=== PATIENT | male | born 1975 | race Caucasian/White ===

== ENCOUNTER 2019-10-12 14:47 | Inpatient (IN) | payer BC ==
[2019-10-12 16:27] VITALS: BMI 27.1
--- NOTE | 2019-10-12 17:50 | HP ---
COWS - Scale Resting Pulse: 1= NV 81-100 Sweatin=Flushed/Facial Moisture Restless Observation: 1= Difficult to Sit Still Pupil Size: 0= Normal to Room Light Bone or Joint Aches: 1= Mild Discomfort Runny Nose/ Eye Tearin= Runny Nose/Eyes GI Upset > 30mins: 3= Vomiting/Diarrhea Tremor Observation: 2= Slight Tremor Visible Yawning Observation: 0= None Anxiety or Irritability: 2=Irritable/Anxious Goose Flesh Skin: 3=Piloerection COWS Score: 17 CIWA Score Nausea/Vomitin Muscle Tremors: 3 Anxiety: 3 Agitation: 1-Slight > Activity Paroxysmal Sweats: 2 Orientation: 1-Uncertain about Date Tacttile Disturbances: 1-Very Mild Itch/Numbness Auditory Disturbances: 0-None Visual Disturbances: 0-None Headache: 2-Mild CIWA-Ar Total Score: 16 - Admission Criteria OASAS Guidelines: Admission for Medically Managed Detox: Requires at least one of the followin. CIWA greater than 12 2. Seizures within the past 24 hours 3. Delirium tremens within the past 24 hours 4. Hallucinations within the past 24 hours 5. Acute intervention needed for co occurring medical disorder 6. Acute intervention needed for co occurring psychiatric disorder 7. Severe withdrawal that cannot be handled at a lower level of care (continued vomiting, continued diarrhea, abnormal vital signs) requiring intravenous medication and/or fluids 8. Patient presents the following: CIWA greater than 12 Admission Criteria Met: Admission criteria met Admitting History and Physical - Admission History of Present Illness: Patient is a 44 year old male with history of alcohol use disorder, benzodiazepi ne use disorder, opiate use disorder presents for detox. PMH: asthma PSH: denies Social: lives in house, by himself. formerly worked in construction Pych: anxiety, depression Legal: currently on probation History Source: Patient Limitations to Obtaining History: No Limitations - Past Medical History Pulmonary: Yes: Asthma - Alcohol/Substance Use Hx Alcohol Use: Yes History of Substance Use: reports: Heroin, Marijuana, Tranquilizers - Social History Usual Living Arrangement: Yes: Alone ADL: Independent Occupation: formerly worked in construction History of Recent Travel: No Admission ROS BHS - HPI Exam Limitations: No Limitations - Ebola screening Have you traveled outside of the country in the last 21 days: No Have you been sick,other than usual withdrawal symptoms: No Do you have a fever: No - Review of Systems Constitutional: No Symptoms Reported EENT: denies: Blurred Vision, Hearing Loss Respiratory: denies: Cough, Shortness of Breath Cardiac: denies: Chest Pain, Palpitations GI: reports: Nausea, Vomiting (nausea, one episode NBNB vomiting secondary to withdrawal). denies: Abdominal cramping : denies: Burning, Dysuria Musculoskeletal: reports: Back Pain (chronic back pain) Neuro: reports: Headache. denies: Numbness, Weakness Psychiatric: reports: Anxious, Depressed, other (denies suicidal or homicidal ideation) Patient History - Patient Medical History Hx Anemia: No Hx Asthma: Yes Hx Chronic Obstructive Pulmonary Disease (COPD): No Hx Cancer: No Hx Cardiac Disorders: No Hx Congestive Heart Failure: No Hx Hypertension: No Hx Hypercholesterolemia: No Hx Pacemaker: No HX Cerebrovascular Accident: No Hx Seizures: Yes (secondary to benzo/ alcohol withdrawal (2018)) Hx Dementia: No Hx Diabetes: No Hx Gastrointestinal Disorders: No Hx Liver Disease: No Hx Genitourinary Disorders: No Hx Sexually Transmitted Disorders: No Hx Renal Disease (ESRD): No Hx Thyroid Disease: No Hx Human Immunodeficiency Virus (HIV): No Hx Hepatitis C: No Hx Depression: Yes Hx Suicide Attempt: No Hx Bipolar Disorder: No Hx Schizophrenia: No - Patient Surgical History Past Surgical History: No Hx Neurologic Surgery: No Hx Cataract Extraction: No Hx Cardiac Surgery: No Hx Lung Surgery: No Hx Breast Surgery: No Hx Breast Biopsy: No Hx Abdominal Surgery: No Hx Appendectomy: No Hx Cholecystectomy: No Hx Genitourinary Surgery: No Hx Section: No Hx Orthopedic Surgery: No Hx Hysterectomy: No - PPD History Previous Implant?: Yes Documented Results: Negative w/o proof Implanted On Prior R Admission?: No PPD to be Administered?: Yes - Reproductive History Patient is a Female of Child Bearing Age (11 -55 yrs old): No Patient : No - Smoking Cessation Smoking history: Never smoked Have you smoked in the past 12 months: No Hx Chewing Tobacco Use: No - Substance & Tx. History Hx Alcohol Use: Yes Substance Use Type: Alcohol, Heroin, Marijuana, Tranquilizers Hx Substance Use Treatment: Yes - Substances abused Alcohol Substance route: Oral Frequency: Daily Amount used: Vodka 1L daily, Beer 12 pack daily Age of first use: 19 Date of last use: 10/12/19 Heroin Substance route: Inhalation Frequency: Daily Amount used: 1 bundle daily (10 bags) Age of first use: 31 Date of last use: 10/12/19 Alprazolam (Xanax) Substance route: Oral Frequency: Daily Amount used: 2 bars daily (4mg) Age of first use: 31 Date of last use: 10/12/19 Marijuana/Hashish Substance route: Inhalation Frequency: Daily Amount used: 1 joint Age of first use: 19 Date of last use: 10/12/19 Admission Physical Exam [facility] - Vital Signs Vital Signs: Vital Signs - 24 hr 10/12/19 16:25 Temperature 98.2 F Pulse Rate 83 Respiratory 19 Rate Blood Pressure 151/82 - Physical General Appearance: Yes: Mild Distress, Anxious HEENTM: Yes: Normocephalic, LUIS A Respiratory: Yes: Lungs Clear, Normal Breath Sounds, No Respiratory Distress, No Accessory Muscle Use Neck: Yes: Supple Breast: Yes: Breast Exam Deferred Cardiology: Yes: Regular Rhythm, Regular Rate, S1, S2 Abdominal: Yes: Normal Bowel Sounds, Non Tender, Flat, Soft Musculoskeletal: Yes: Within Normal Limits, full range of Motion Extremities: Yes: Within Normal Limits, Normal Range of Motion Neurological: Yes: Within Normal Limits, Alert, Motor Strength 5/5, Normal Response Integumentary: Yes: Dry, Warm - Diagnostic (1) Anxiety Current Visit: No Status: Chronic (2) Depression Current Visit: No Status: Chronic Qualifiers: Depression Type: unspecified Qualified Code(s): F32.9 - Major depressive disorder, single episode, unspecified (3) Alcohol dependence with withdrawal, uncomplicated Current Visit: Yes Status: Acute (4) Opioid dependence with withdrawal Current Visit: Yes Status: Acute (5) Sedative, hypnotic or anxiolytic dependence with withdrawal, uncomplicated Current Visit: Yes Status: Acute (6) Marijuana abuse Current Visit: No Status: Chronic (7) Asthma Current Visit: No Status: Chronic Qualifiers: Asthma severity: unspecified severity Asthma persistence: unspecified Asthma complication type: unspecified Qualified Code(s): J45.909 - Unspecified asthma, uncomplicated Cleared for Admission [facility] - Detox or Rehab [facility] Level of Care: Medically Managed Detox Regimen/Protocol: Librium Claeared for Rehab Admission: Yes Screened but not Admitted - Documentation of Visit Screened but not Admitted: No Breathalyzer - Breathalyzer Breathalyzer: 0.150 Urine Drug Screen - Test Device Lot number: [id number] Expiration date: 05/31/21 - Control Is test valid?: Yes - Results Drug screen NEGATIVE: No Urine drug screen results: THC-Marijuana, FEN-Fentanyl, MOP-Opiates, BZO- Benzodiazepines, BUP-Suboxone Inpatient Rehab Admission - Rehab Decision to Admit Inpatient rehab admission?: No
[2019-10-12] MEDS ORDERED: MAGNESIUM HYDROX 2400MG/30ML ORAL SUSPENSION 30 ML CUP PO PRN (18:00)
[2019-10-12] MEDS ORDERED: BISMUTH SUBSALICYLATE 524 MG/30 ML UD PO PRN (18:00)
[2019-10-12] MEDS ORDERED: cloNIDine HCL 0.1 MG TABLET PO PRN (18:00)
[2019-10-12] MEDS ORDERED: chlordiazePOXIDE HCL 25 MG CAPSULE PO PRN (18:00)
[2019-10-12] MEDS ORDERED: IBUPROFEN 400 MG TABLET (FP) PO PRN (18:00)
[2019-10-12] MEDS ORDERED: ONDANSETRON *ODT* 4 MG TABLET SL PRN (18:00)
[2019-10-12] MEDS ORDERED: ACETAMINOPHEN 325 MG TABLET (FP) PO PRN ×2 (18:00)
[2019-10-12] MEDS ORDERED: MENTHOL/PHENOL 1 EACH UD MM PRN (18:00)
[2019-10-12] MEDS ORDERED: MAG HYDROX/AL HYDROX/SIMETH 30 ML UNIT-DOSE CUP PO PRN (18:00)
[2019-10-12] MEDS ORDERED: METHOCARBAMOL 500 MG TABLET PO PRN (18:00)
[2019-10-12] MEDS ORDERED: hydrOXYzine PAMOATE 25 MG CAPSULE (FP) PO SCH (18:00)
[2019-10-12] MEDS ORDERED: MAGNESIUM CITRATE 300 ML BOTTLE PO PRN (18:00)
[2019-10-12] MEDS ORDERED: METHADONE HCL 10 MG TABLET (FOR DETOX USE ONLY) PO ONE (18:00)
[2019-10-12] MEDS ORDERED: ALBUTEROL SO4 HFA INHALER IH PRN (18:03)
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
[2019-10-12] MEDS: hydrOXYzine PAMOATE 25 MG CAPSULE (FP) PO PRN (19:27)
[2019-10-12] MEDS: AMOX TR/POT CLAV 875MG/125MG TABLETS (FP) PO SCH (19:56)
[2019-10-12] MEDS: chlordiazePOXIDE HCL 25 MG CAPSULE PO SCH (22:11)
[2019-10-12] MEDS: THIAMINE HCL 100 MG TABLET (FP) PO SCH (22:11)
[2019-10-12] MEDS: BACITRACIN 0.9 GM PACKET TP SCH (22:12)
[2019-10-12] MEDS: MELATONIN 5 MG TABLETS PO SCH (22:13)
[2019-10-13] MEDS: chlordiazePOXIDE HCL 25 MG CAPSULE PO SCH ×4 (05:21→22:19)
[2019-10-13] MEDS: AMOX TR/POT CLAV 875MG/125MG TABLETS (FP) PO SCH ×2 (07:22→17:52)
[2019-10-13] MEDS ORDERED: METHADONE (DETOX) 20 MG, METHADONE (DETOX) 5 MG PO ONE (10:00)
[2019-10-13] MEDS ORDERED: BUPRENORPHINE/NALOXONE 8 MG/2 MG FILM PACKET SL ONE ×2 (10:00→10:30)
[2019-10-13] MEDS: PRENATAL VITAMINS W/ FOLIC ACID TABLET (FP) PO SCH (10:17)
[2019-10-13] MEDS: BACITRACIN 0.9 GM PACKET TP SCH ×2 (10:18→22:22)
[2019-10-13 10:37] LABS: HEMATOCRIT 50.7 % (35.4-49); HEMOGLOBIN 17.2 GM/dL (11.7-16.9); MCH 33.2 pg (25.7-33.7); MCHC 33.9 g/dl (32.0-35.9); MEAN CELL VOLUME 98.1 fl (80-96); MEAN PLT VOLUME 9.2 fl (7.5-11.1); PLATELET COUNT 308 K/MM3 (134-434); RBC 5.16 M/mm3 (4.00-5.60); RDW 14.6 % (11.9-15.9); WHITE BLOOD COUNT 8.1 K/mm3 (4.0-10.0)
[2019-10-13 10:52] LABS: ALBUMIN 4.2 g/dl (3.4-5.0); BILIRUBIN,TOTAL 2.5 mg/dL (0.2-1); BLOOD UREA NITROGEN 14.5 mg/dL (7-18); CALCIUM 9.6 mg/dL (8.5-10.1); POTASSIUM 4.8 mmol/L (3.5-5.1); TOT PROT 7.5 g/dl (6.4-8.2)
--- NOTE | 2019-10-13 11:22 | CONSULT ---
[facility] Psychiatric Consult - Data Date of interview: 10/13/19 Medical History: Significant for bronchial asthma and drug related seizure Psychiatric History: Patient was approached at bedside for solicitation of a psychiatric interview. He told principal technical writer:" why do I have to see a psychiatrist. I'm ok"
--- NOTE | 2019-10-13 12:20 | PN ---
S CIWA - CIWA Score Nausea/Vomitin-Mild Nausea/No Vomiting Muscle Tremors: 3 Anxiety: 3 Agitation: 2 Paroxysmal Sweats: 1-Minimal Palms Moist Orientation: 0-Oriented Tacttile Disturbances: 1-Very Mild Itch/Numbness Auditory Disturbances: 0-None Visual Disturbances: 0-None Headache: 2-Mild CIWA-Ar Total Score: 13 S Progress Note (SOAP) Subjective: alert,irritable,anxious,interrupted sleep,aching pain,on suboxone 8mg/2 mg sl tid form i stop,aching pain,left leg sperficial old laceration 4 inched,no drainage, localizes erythema Objective: 10/13/19 12:15 Vital Signs Temperature 97.8 F 10/13/19 08:26 Pulse Rate 75 10/13/19 08:26 Respiratory Rate 20 10/13/19 08:26 Blood Pressure 145/81 10/13/19 08:26 O2 Sat by Pulse Oximetry (%) 98 10/13/19 05:10 Laboratory Last Values WBC 8.1 K/mm3 (4.0-10.0) 10/13/19 08:00 RBC 5.16 M/mm3 (4.00-5.60) 10/13/19 08:00 Hgb 17.2 GM/dL (11.7-16.9) H 10/13/19 08:00 Hct 50.7 % (35.4-49) H 10/13/19 08:00 MCV 98.1 fl (80-96) H 10/13/19 08:00 MCH 33.2 pg (25.7-33.7) 10/13/19 08:00 MCHC 33.9 g/dl (32.0-35.9) 10/13/19 08:00 RDW 14.6 % (11.9-15.9) 10/13/19 08:00 Plt Count 308 K/MM3 (134-434) 10/13/19 08:00 MPV 9.2 fl (7.5-11.1) 10/13/19 08:00 Sodium 138 mmol/L (136-145) 10/13/19 08:00 Potassium 4.8 mmol/L (3.5-5.1) 10/13/19 08:00 Chloride 100 mmol/L (98-107) 10/13/19 08:00 Carbon Dioxide 31 mmol/L (21-32) 10/13/19 08:00 Anion Gap 7 MMOL/L (8-16) L 10/13/19 08:00 BUN 14.5 mg/dL (7-18) 10/13/19 08:00 Creatinine 1.0 mg/dL (0.55-1.3) 10/13/19 08:00 Est GFR (CKD-EPI)AfAm 106.36 10/13/19 08:00 Est GFR (CKD-EPI)NonAf 91.77 10/13/19 08:00 Random Glucose 104 mg/dL (74-106) 10/13/19 08:00 Calcium 9.6 mg/dL (8.5-10.1) 10/13/19 08:00 Total Bilirubin 2.5 mg/dL (0.2-1) H 10/13/19 08:00 AST 227 U/L (15-37) H 10/13/19 08:00 ALT 216 U/L (13-61) H 10/13/19 08:00 Alkaline Phosphatase 94 U/L (45-117) 10/13/19 08:00 Total Protein 7.5 g/dl (6.4-8.2) 10/13/19 08:00 Albumin 4.2 g/dl (3.4-5.0) 10/13/19 08:00 Syphilis Serology Non-reactive (NONREACTIVE) 10/13/19 08:00 Assessment: 10/13/19 12:16 withdrawal symptom Plan: continue detox librium regimen,continue suboxone 8mg/2mgs film tid ,continue augmentin 875 mgs po bid for 7 days, repeat cmp,inr in am
[2019-10-13] MEDS: BUPRENORPHINE/NALOXONE 8 MG/2 MG FILM PACKET SL SCH ×2 (13:27→22:19)
[2019-10-13] MEDS: hydrOXYzine PAMOATE 25 MG CAPSULE (FP) PO PRN (15:53)
--- NOTE | 2019-10-13 16:58 | EKG ---
Test Reason : Blood Pressure : / mmHG Vent. Rate : 055 BPM Atrial Rate : 055 BPM P-R Int : 124 ms QRS Dur : 086 ms QT Int : 416 ms P-R-T Axes : 037 076 045 degrees QTc Int : 397 ms SINUS BRADYCARDIA OTHERWISE NORMAL ECG NO PREVIOUS ECGS AVAILABLE Confirmed by SAMINA DUPONT MD ([id number]) on 10/13/2019 4:57:44 PM Referred By: Confirmed By:SAMINA DUPONT MD
[2019-10-13] MEDS: THIAMINE HCL 100 MG TABLET (FP) PO SCH (22:19)
[2019-10-13] MEDS: MELATONIN 5 MG TABLETS PO SCH (22:19)
[2019-10-14] MEDS: BUPRENORPHINE/NALOXONE 8 MG/2 MG FILM PACKET SL SCH ×2 (06:36→13:14)
[2019-10-14] MEDS: chlordiazePOXIDE HCL 25 MG CAPSULE PO SCH ×2 (06:36→10:22)
[2019-10-14] MEDS ORDERED: METHADONE HCL 10 MG TABLET (FOR DETOX USE ONLY) PO ONE (10:00)
[2019-10-14] MEDS: BACITRACIN 0.9 GM PACKET TP SCH (10:22)
[2019-10-14 10:26] LABS: INR 0.91 (0.83-1.09); PROTHROMBIN TIME (PATIENT) 10.7 SEC (9.7-13.0)
[2019-10-14 10:31] LABS: ALBUMIN 4.2 g/dl (3.4-5.0); BILIRUBIN,TOTAL 1.5 mg/dL (0.2-1); BLOOD UREA NITROGEN 11.1 mg/dL (7-18); CALCIUM 9.5 mg/dL (8.5-10.1); CREATININE 1.2 mg/dL (0.55-1.3); POTASSIUM 4.3 mmol/L (3.5-5.1); TOT PROT 7.8 g/dl (6.4-8.2)
--- NOTE | 2019-10-14 11:11 | PN ---
S CIWA - CIWA Score Nausea/Vomitin-Mild Nausea/No Vomiting Muscle Tremors: 2 Anxiety: 2 Agitation: 2 Paroxysmal Sweats: 2 Orientation: 0-Oriented Tacttile Disturbances: 0-None Auditory Disturbances: 0-None Visual Disturbances: 0-None Headache: 1-Very Mild CIWA-Ar Total Score: 10 S Progress Note (SOAP) Subjective: pt admitted for polysubstance use, alcohol detox, on opioid agonest treatment. O: Vital Signs - 24 hr 10/13/19 10/13/19 10/13/19 13:38 16:49 20:45 Temperature 98 F 98.6 F 97.8 F Pulse Rate 72 65 59 L Respiratory 18 17 18 Rate Blood Pressure 135/79 146/86 139/79 O2 Sat by Pulse 97 98 Oximetry (%) 10/14/19 10/14/19 06:30 09:08 Temperature 97.5 F L 97.5 F L Pulse Rate 56 L 65 Respiratory 18 18 Rate Blood Pressure 143/87 132/78 O2 Sat by Pulse 96 Oximetry (%) Laboratory Tests 10/12/19 10/13/19 10/13/19 18:45 08:00 08:00 WBC 8.1 RBC 5.16 Hgb 17.2 H Hct 50.7 H MCV 98.1 H MCH 33.2 MCHC 33.9 RDW 14.6 Plt Count 308 MPV 9.2 PT with INR INR Sodium Potassium Chloride Carbon Dioxide Anion Gap BUN Creatinine Est GFR (CKD-EPI)AfAm Est GFR (CKD-EPI)NonAf Random Glucose Calcium Total Bilirubin AST ALT Alkaline Phosphatase Total Protein Albumin Syphilis Serology Non-reactive COVID-19 ([facility]) Not detected 10/13/19 10/14/19 10/14/19 08:00 07:50 07:50 WBC RBC Hgb Hct MCV MCH MCHC RDW Plt Count MPV PT with INR 10.70 INR 0.91 Sodium 138 139 Potassium 4.8 4.3 Chloride 100 102 Carbon Dioxide 31 31 Anion Gap 7 L 6 L BUN 14.5 11.1 Creatinine 1.0 1.2 Est GFR (CKD-EPI)AfAm 106.36 85.32 Est GFR (CKD-EPI)NonAf 91.77 73.62 Random Glucose 104 120 H Calcium 9.6 9.5 Total Bilirubin 2.5 H 1.5 H AST 227 H 159 H ALT 216 H 201 H Alkaline Phosphatase 94 94 Total Protein 7.5 7.8 Albumin 4.2 4.2 Syphilis Serology COVID-19 ([facility]) increased Hct, increased liver enzymes ALT>AST, imporved since admission a/p: AUD- continue detox protocol pt on suboxone maintenance increased liver enzymes- and increased Hct, needs f/u PCP
[2019-10-14] MEDS: PRENATAL VITAMINS W/ FOLIC ACID TABLET (FP) PO SCH (11:18)
[2019-10-14] MEDS: AMOX TR/POT CLAV 875MG/125MG TABLETS (FP) PO SCH (12:29)
[2019-10-14 15:10] VITALS: BP 131/78; PULSE 77; TEMP 98
--- NOTE | 2019-10-14 15:55 | DS ---
[facility] Detox Discharge Summary Admission Date: 10/12/19 Discharge Date: 10/14/19 - History Present History: Alcohol Dependence, Opioid Dependence, Sedative Dependence Pertinent Past History: Pt states he needs to leave. Has to make important phone calls. Pt talked to counselor and tried to get pt to stay- but pt adamant aobut leaving. Pt given copy of labs and will f/u with PCP. Pt informed of the risks of overdose and not being in treatment- pt still wants to leave. says he will stay at his mother's place- has Suboxone and gabapentin at home. - Physical Exam Results Vital Signs: Vital Signs Temperature 98 F 10/14/19 12:47 Pulse Rate 77 10/14/19 12:47 Respiratory Rate 18 10/14/19 12:47 Blood Pressure 131/78 10/14/19 12:47 O2 Sat by Pulse Oximetry (%) 97 10/14/19 12:47 - Treatment Hospital Course: Detox Protocol Followed - Medication Discharge Medications: Ambulatory Orders Buprenorphine HCl/Naloxone HCl [Suboxone 8 mg-2 mg Sl Tablets] 1 each SL BID 10/12/19 Gabapentin [Neurontin -] 300 mg PO TID 10/12/19 - Diagnosis (1) Alcohol dependence with withdrawal, uncomplicated Current Visit: Yes Status: Acute (2) Opioid dependence with withdrawal Current Visit: Yes Status: Acute (3) Sedative, hypnotic or anxiolytic dependence with withdrawal, uncomplicated Current Visit: Yes Status: Acute - AMA Did Patient Leave Against Medical Advice: Yes
[2019-10-15] MEDS ORDERED: chlordiazePOXIDE HCL 10 MG CAPSULE PO PRN
[2019-10-15] MEDS ORDERED: chlordiazePOXIDE HCL 10 MG CAPSULE PO SCH (05:00)
[2019-10-15] MEDS ORDERED: METHADONE (DETOX) 10 MG, METHADONE (DETOX) 5 MG PO ONE (10:00)
[2019-10-16] MEDS ORDERED: chlordiazePOXIDE HCL 10 MG CAPSULE PO SCH (05:00)
[2019-10-16] MEDS ORDERED: METHADONE HCL 10 MG TABLET (FOR DETOX USE ONLY) PO ONE (10:00)
[2019-10-17] MEDS ORDERED: chlordiazePOXIDE HCL 10 MG CAPSULE PO ONE (05:00)
[2019-10-17] MEDS ORDERED: METHADONE HCL 5 MG TABLET (FOR DETOX USE ONLY) PO ONE (06:00)
== END 2019-10-14 15:56 | disposition home or self-care (01) | DRG 773 ==
LOC: YASAS 14:47 → Y6N 18:31
PROVIDERS: ADMIT Allergy & Immunology; ATTEND Allergy & Immunology
PROC: HZ2ZZZZ Detoxification Services for Substance Abuse Treatment (ICD-10-PCS; principal; 2019-10-12)
DX: F10.230 Alcohol dependence with withdrawal, uncomplicated (principal); F11.23 Opioid dependence with withdrawal; F13.230 Sedative, hypnotic or anxiolytic dependence with withdrawal, uncomplicated; F12.10 Cannabis abuse, uncomplicated; F41.9 Anxiety disorder, unspecified; F32.9 Major depressive disorder, single episode, unspecified; G40.509 Epileptic seizures related to external causes, not intractable, without status epilepticus; J45.909 Unspecified asthma, uncomplicated; R74.0 Nonspecific elevation of levels of transaminase and lactic acid dehydrogenase [LDH]; S81.812D Laceration without foreign body, left lower leg, subsequent encounter; V00.141D Fall from scooter (nonmotorized), subsequent encounter
CPT/HCPCS: 36415; 80053; 85027; 85610; 86780; 93005; 93010; U0003